=== PATIENT | female | born 1945 | race African-American/Black ===

== ENCOUNTER 2017-07-21 16:19 | Observation (INO) ==
[2017-07-21] MEDS ORDERED: Sodium Chloride 0.9% 1,000 ML PRIMARY IV ONE (16:25)
[2017-07-21 16:42] LABS: BASOPHILS # (AUTO) 0.01 10*3/UL; BASOPHILS % (AUTO) 0.1 % (0-1); EOSINOPHILS # (AUTO) 0.03 10*3/UL; EOSINOPHILS % (AUTO) 0.4 % (0-8); Hematocrit [HCT] 38.2 % (37.0-47.0); Hemoglobin [HGB] 13.2 g/dL (12.0-16.0); MEAN CORPUSCULAR HEMOGLOBIN 28.5 PG (27-31); MEAN CORPUSCULAR HGB CONC 34.6 g/dL (33-37); MEAN CORPUSCULAR VOLUME 82.5 FL (81-99); MONOCYTES # (AUTO) 0.46 10*3/UL (0.3-0.8); MONOCYTES % (AUTO) 6.9 % (5-15); NEUTROPHILS # (AUTO) 4.98 10*3/UL; NEUTROPHILS % (AUTO) 74.6 % (50-80); RED BLOOD COUNT 4.63 10^6/uL (4.20-5.40)
[2017-07-21 16:43] LABS: PLATELET MORPHOLOGY COMMENT NORMAL MORPHOLOGY (NORM); RBC MORPHOLOGY COMMENT NORMAL MORPHOLOGY (NORM); WBC MORPHOLOGY COMMENT NORMAL MORPHOLOGY (NORM)
[2017-07-21 16:52] LABS: BLOOD UREA NITROGEN 11 mg/dL (7-22); BUN/CREATININE RATIO 12.22 (6-20); SERUM ALBUMIN 4.6 g/dL (3.5-4.8)
--- NOTE | 2017-07-21 17:01 | EKG ---
[address] [place] [address] Measurements Intervals Dixon Rate: 68 P: 65 AK: 175 QRS: -58 QRSD: 146 T: 11 QT: 446 QTc: 463 Interpretive Statements SINUS RHYTHM RIGHT BUNDLE BRANCH BLOCK [120+ ms QRS DURATION, UPRIGHT V1, 40+ ms S IN I/aVL/V4/V5/V6] LEFT ANTERIOR FASCICULAR BLOCK [QRS AXIS <= -45, QR IN I, RS IN II] No previous ECG available for comparison Electronically Signed On 07-23-17 09:52:42 MDT by Wild Shaw MD [id number]
[2017-07-21 17:09] LABS: VENOUS PH 7.49 (7.32-7.42)
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
[2017-07-21 17:17] LABS: CARBON MONOXIDE 4.1 % (0-2)
[2017-07-21 17:45] LABS: BILIRUBIN,URINE NEGATIVE (NEG); CLARITY,URINE CLEAR (CLEAR); COLOR,URINE YELLOW (Y); GLUCOSE, URINE (UA) NEGATIVE (NEG); OCCULT BLOOD,URINE Trace-intact (NEG); PH,URINE 7.5 (5.0-8.5); PROTEIN,URINE 100 mg/dl (NEG); UROBILINOGEN,URINE 0.2 EU/dL (0.2)
[2017-07-21 17:59] LABS: RBC,URINE 0-3 /hpf; SQUAMOUS EPITHELIAL CELL,UR FEW; URINE SAMPLE TYPE CLEAN CATCH URINE; WBC,URINE 0-3
[2017-07-21 17:59] LABS: AMPHETAMINE SCREEN NEGATIVE (NEG); CANNABINOID SCREEN,URINE NEGATIVE (NEG); COCAINE SCREEN NEGATIVE (NEG); METHADONE URINE SCREEN NEGATIVE (NEG); METHAMPHETAMINES SCREEN,URINE NEGATIVE (NEG); OPIATE SCREEN,URINE NEGATIVE (NEG); URINE SAMPLE TYPE CLEAN CATCH URINE; URINE SPECIFIC GRAVITY - MAN 1.015
--- NOTE | 2017-07-21 18:04 | DI ---
EXAM: XR Chest, 1 View CLINICAL HISTORY: ITS.REASON confusion Physician Notes: Tech Comments: TECHNIQUE: Frontal view of the chest. COMPARISON: No relevant prior studies available. FINDINGS: Lungs: Unremarkable. No consolidation. Pleural space: Unremarkable. No pneumothorax. Heart: Enlarged cardiac silhouette. Mediastinum: Unremarkable. Bones/joints: Unremarkable. IMPRESSION: Enlarged cardiac silhouette. No consolidation or vascular congestion.
--- NOTE | 2017-07-21 18:47 | DI ---
EXAM: CT Head Without Intravenous Contrast CLINICAL HISTORY: ITS.REASON confusion Physician Notes: Tech Comments: TECHNIQUE: Axial computed tomography images of the head/brain without intravenous contrast. COMPARISON: No relevant prior studies available. FINDINGS: Brain: No intracranial hemorrhage or mass effect. Left occipital lobe infarct appears chronic. Involutional and microvascular ischemic changes. Ventricles: Unremarkable. No ventriculomegaly. Bones/joints: Unremarkable. No acute fracture. Soft tissues: Unremarkable. Sinuses: Unremarkable as visualized. No acute sinusitis. Mastoid air cells: Unremarkable as visualized. No mastoid effusion. IMPRESSION: No acute intracranial process. Chronic left occipital lobe infarct as well as involutional and microvascular ischemic changes.
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
[2017-07-21] MEDS ORDERED: ONDANSETRON 4 MG/2 ML VIAL IVP PRN (20:06)
[2017-07-21] MEDS ORDERED: ACETAMINOPHEN 325 MG TABLET PO PRN (20:06)
[2017-07-21] MEDS ORDERED: DOCUSATE 100 MG CAPSULE PO PRN (20:06)
[2017-07-21] MEDS ORDERED: CALCIUM CARBONATE 500 MG (TUMS) CHEWABLE TABLET PO PRN (20:06)
[2017-07-21] MEDS ORDERED: LIDOCAINE W/ SODIUM BICARB 0.5 ML SYR SUBD PRN (20:06)
[2017-07-21] MEDS: D5-1/2NS + 20mEq KCL 1,000 ML PRIMARY IV SCH (21:07)
[2017-07-22 05:24] LABS: CARBON MONOXIDE 3.6 % (0-2)
[2017-07-22 05:24] LABS: CARBON MONOXIDE 3.9 % (0-2)
[2017-07-22 05:44] LABS: BLOOD UREA NITROGEN 11 mg/dL (7-22); BUN/CREATININE RATIO 12.22 (6-20)
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
[2017-07-22] MEDS: D5-1/2NS + 20mEq KCL 1,000 ML PRIMARY IV SCH (16:12)
[2017-07-22 18:30] LABS: CARBON MONOXIDE 2.4 % (0-2)
[2017-07-23 04:27] LABS: CARBON MONOXIDE 1.9 % (0-2)
[2017-07-23 11:28] VITALS: BP 173/91; RESP 16; TEMP 97.3; O2SAT 97
--- NOTE | 2017-07-23 13:11 | DCSUMMARY ---
Hospitalization Summary Admit Date: 07/21/2017 Discharge Date: 07/23/17 Primary Diagnosis:: Carbon monoxide poisoning Secondary Diagnosis:: Hypertension, probably present for some time without therapy. Hospital Course: This is a very pleasant 72-year-old female that was driving to [place] in an [employer] truck. She filled up her vehicle in [place], [place], and [place] towards [place] where she was moving from. When she realized this, she tried to drive across the [facility] and had back south. She was then brought into the emergency room for evaluation and found to have a carbon monoxide poisoning. She had headaches that all resolved with oxygen therapy. It took 2 days to get her, monoxide level down to normal which it is today. In the meantime, we also found hypertension, a heart that is likely consistent with cardiomegaly, and probable hypertensive heart disease. She has a right bundle branch block. She is not interested in seeing a physician here, but she will consider seeing one in [place]. She was very resistant when we talked about establishing care with a physician. I was able to discuss with her that I felt a blood pressure medication would be her best bet at this point to start , and she is willing to go on Norvasc daily. I started her at 10 mg daily and she's not had any problems on that. We will get her a 90 day supply at the time of discharge. In the meantime, we also tried to assist the patient in getting a new [employer] truck. The patient will be discharged when all of that is arranged. The patient does not have any complaints of chest pain, trouble breathing, nausea or vomiting today. She is ready to go. Assessment and Plan: 1. As per discharge assessments noted 2. Disposition: Patient is discharged home to resume her move to [place] 3. Condition on discharge, stable and improved. 4. Diet: regular diet 5. Activities: resume normal activities 6. Follow-Up: 1. Establish with a primary care physician in [place] was my recommendation as soon as she gets there. 7. Medications at the Time of Discharge: Home Medications 3 Medication Instructions Recorded Confirmed Type Amlodipine Besylate [Norvasc] 10 mg PO DAILY #90 tab 07/23/17 Rx Exam - Vitals Vital Signs: Vital Signs Temperature 97.3 F Temperature Source Temporal Artery Scan Pulse Rate [Pulse Oximeter] 68 Pulse Rate 57 Respiratory Rate 16 Blood Pressure [Right Arm] 176/88 Blood Pressure [Left Arm] 173/91 Blood Pressure 207/111 Pulse Ox 97 Oxygen Flow Rate 15 Oxygen Delivery Method Room Air Height 5 ft 6 in Weight 206 lb 14.4 oz - General General Appearance: No Acute Distress, Cooperative - Eye Eye Exam: POSITIVE: No Scleral Icterus - ENT ENT Exam: POSITIVE: Mucous Membranes Moist - Respiratory Respiratory Exam: POSITIVE: Clear to Auscultation - Bilaterally, Breathing Non Labored - Cardiovascular Cardiovascular Exam: POSITIVE: RRR, No Murmur, No Clicks, No Gallops, No Rubs, No JVD - GI/Abdominal GI/Abdominal Exam: POSITIVE: Normal Bowel Sounds, Non Tender, Non Distended, Soft - Extremities Extremities Exam: POSITIVE: No Clubbing Present, No Cyanosis Present, +1 Edema ( Actually trace edema bilaterally but improved) - Neurological Neurological Exam: POSITIVE: Alert, Oriented x 3, No Facial Droop, Speech Intact / Clear, Moves All Extremities Equally - Psychiatric Psychiatric Exam: POSITIVE: Normal Affect, Normal Mood Data Peritnent Studies: 07/21/17 07/21/17 07/21/17 16:25 16:25 16:25 WBC 6.68 Hgb 13.2 Hgb #2 Plt Count 250 Carbon Monoxide, % Sat Sodium Potassium Chloride Carbon Dioxide Anion Gap BUN Creatinine Glucose Lactic Acid Calcium Magnesium 1.9 Total Bilirubin 0.5 AST 26 ALT 29 Alkaline Phosphatase 120 Troponin I C-Reactive Protein 1.0 H Total Protein 8.2 H Albumin 4.6 Globulin 3.6 Albumin/Globulin Ratio 1.20 L TSH Urine Protein 100 A Urine Occult Blood Trace-intact H 07/21/17 07/21/17 07/21/17 16:25 16:25 16:25 WBC Hgb Hgb #2 Plt Count Carbon Monoxide, % Sat Sodium Potassium Chloride Carbon Dioxide Anion Gap BUN Creatinine Glucose Lactic Acid 1.1 Calcium Magnesium Total Bilirubin AST ALT Alkaline Phosphatase Troponin I 0.013 C-Reactive Protein Total Protein Albumin Globulin Albumin/Globulin Ratio TSH 1.11 Urine Protein Urine Occult Blood 07/21/17 07/22/17 07/23/17 16:25 05:04 04:14 WBC Hgb Hgb #2 13.2 Plt Count Carbon Monoxide, % Sat 4.1 H 1.9 Sodium 143 Potassium 4.0 Chloride 110 Carbon Dioxide 25 Anion Gap 8 BUN 11 Creatinine 0.9 Glucose 96 Lactic Acid Calcium 9.3 Magnesium Total Bilirubin AST ALT Alkaline Phosphatase Troponin I C-Reactive Protein Total Protein Albumin Globulin Albumin/Globulin Ratio TSH Urine Protein Urine Occult Blood Procedures: [address] [facility] [facility] [place] [address] PH: DD: [phone] FAX: [phone] ~DIAGNOSTIC IMAGING REPORT~ Patient: Justina Lantigua : 1945 Sex: F Age: 72 Exam Name: XR CXR 1VW Exam Date: 07/21/17 Report # : [id number] CPT Code: 62198 EMR/MR #: [id number] Ordering: ELYSE FERNANDO Admiting: Primary: NONE,NONE Attending: Signed EXAM: XR Chest, 1 View CLINICAL HISTORY: ITS.REASON confusion Physician Notes: Tech Comments: TECHNIQUE: Frontal view of the chest. COMPARISON: No relevant prior studies available. FINDINGS: Lungs: Unremarkable. No consolidation. Pleural space: Unremarkable. No pneumothorax. Heart: Enlarged cardiac silhouette. Mediastinum: Unremarkable. Bones/joints: Unremarkable. IMPRESSION: Enlarged cardiac silhouette. No consolidation or vascular congestion. Dictated By: Oskar Ross MD Signed By: 07/21/17 1804 Oskar Ross MD [address] [facility] [place] [address] PH: DD: [phone] FAX: [phone] ~DIAGNOSTIC IMAGING REPORT~ Patient: Justina Lantigua : 1945 Sex: F Age: 72 Exam Name: CT Head WO Contrast Exam Date: 07/21/17 Report # : [id number] CPT Code: 57224 EMR/MR #: [id number] Ordering: ABDULLAHI,ELYSE T Admiting: Primary: NONE,NONE Attending: Signed EXAM: CT Head Without Intravenous Contrast CLINICAL HISTORY: ITS.REASON confusion Physician Notes: Tech Comments: TECHNIQUE: Axial computed tomography images of the head/brain without intravenous contrast. COMPARISON: No relevant prior studies available. FINDINGS: Brain: No intracranial hemorrhage or mass effect. Left occipital lobe infarct appears chronic. Involutional and microvascular ischemic changes. Ventricles: Unremarkable. No ventriculomegaly. Bones/joints: Unremarkable. No acute fracture. Soft tissues: Unremarkable. Sinuses: Unremarkable as visualized. No acute sinusitis. Mastoid air cells: Unremarkable as visualized. No mastoid effusion. IMPRESSION: No acute intracranial process. Chronic left occipital lobe infarct as well as involutional and microvascular ischemic changes. Dictated By: Oskar Ross MD Signed By: 07/21/17 184 Oskar Ross MD Patient Problems - Patient Problem List (1) Carbon monoxide poisoning Current Visit: Yes Status: Resolved Code(s): T58.91XA - Toxic effect of carbon monoxide from unspecified source, accidental (unintentional), initial encounter Qualifiers: Encounter type: initial encounter Injury intent: accidental or unintentional Qualified Code(s): T58.91XA - Toxic effect of carbon monoxide from unspecified source, accidental (unintentional), initial encounter Category: Medical (2) Hypertension Current Visit: Yes Status: Acute Code(s): I10 - Essential (primary) hypertension Qualifiers: Hypertension type: essential hypertension Qualified Code(s): I10 - Essential (primary) hypertension Category: Medical (3) Osteoarthritis Current Visit: Yes Status: Acute Code(s): M19.90 - Unspecified osteoarthritis, unspecified site Qualifiers: Osteoarthritis location: knee Osteoarthritis type: primary Laterality: bilateral Qualified Code(s): M17.0 - Bilateral primary osteoarthritis of knee Category: Medical (4) Hypokalemia Current Visit: Yes Status: Resolved Code(s): E87.6 - Hypokalemia Category : Medical (5) Pre-existing hypertensive disorder with superimposed proteinuria Current Visit: Yes Status: Acute Comment: Related to hypertension most likely. May benefit from an MELY inhibitor or an ARB down the road, but no mechanism in place to monitor electrolytes on those medications at this point. Recommended to establish primary care in [place] for continued hypertension management and any further issues. Code(s): I10 - Essential (primary) hypertension; R80.9 - Proteinuria, unspecified Category: Medical
== END 2017-07-23 17:52 | disposition home or self-care (01) ==
LOC: ER 16:19 → MED/SURG 16:19
PROVIDERS: ADMIT Family Medicine; ATTEND Family Medicine